=== PATIENT | male | born 1985 | race American Indian/Alaskan Native ===

== ENCOUNTER 2017-09-26 09:51 | Emergency (ER) | payer OTHER ==
[2017-09-26 10:28] VITALS: BP 133/74
[2017-09-26] MEDS ORDERED: BSS 1 DROPS, TETRACAINE 0.5% 1 DROPS, FUL-GLO 0.6 MG OU ONE (12:08)
[2017-09-26] MEDS ORDERED: BSS ONE (12:13)
[2017-09-26] MEDS ORDERED: FUL-GLO OP ONE (12:13)
[2017-09-26] MEDS ORDERED: TETRACAINE 0.5% ONE (12:14)
--- NOTE | 2017-09-26 12:14 | Emergency Department Report ---
[facility] Chief Complaint: Eye Problems Stated Complaint: LEFT EYE PAIN Time Seen by Provider: 09/26/17 11:40 Duration: 2 Days Side: Left Severity: moderate Symptoms: Yes Eye Redness, Yes Eye Pain, Yes Blurred Vision, No Eye Itching, No Mucous Drainage, No Purulent Drainage, No Preceding URI, No H/O Allergic Rhinitis, No Contact Lens Use, No Trauma, No Fever, No Headache Other History: Patient is a 32-year-old male with no prior medical history who presents to ED complaining of left eye redness and irritation for the past 2 days. Patient states he worse with tests and may have had some good and is about 2 days ago. Patient states that he tried some allergy eye drops that that was allergies but had no relief. He denies fever/ chills/annular problems patient states his vaccinations are all up to date. Patient does not use glasses or use contact ED Review of Systems ROS: Stated complaint: LEFT EYE PAIN Other details as noted in HPI Constitutional: denies: chills, fever Eyes: eye pain, vision change (blurry vison), other (redness). denies: eye discharge ENT: denies: ear pain, throat pain, dental pain, congestion Respiratory: denies: cough, shortness of breath, wheezing Cardiovascular: denies: chest pain, palpitations Endocrine: no symptoms reported Gastrointestinal: denies: abdominal pain, nausea, diarrhea Genitourinary: denies: urgency, dysuria Musculoskeletal: denies: back pain, joint swelling, arthralgia Skin: denies: rash, lesions Neurological: denies: headache, weakness, paresthesias Psychiatric: denies: anxiety, depression Hematological/Lymphatic: denies: easy bleeding, easy bruising ED Past Medical Hx - Past Medical History Previous Medical History?: No - Surgical History Past Surgical History?: No - Social History Smoking Status: Never Smoker Substance Use Type: Alcohol - Medications Home Medications: Home Medications Medication Instructions Recorded Confirmed Last Taken Type Ibuprofen [Motrin] 600 mg PO Q8H PRN #30 tablet 09/26/17 Unknown Rx Ofloxacin [Ocuflox 0.3%] 1 - 2 drop OP QID #5 ml 09/26/17 Unknown Rx [facility] Exam - Exam General: Vital signs noted. No distress. Alert and acting appropriately. Eye Exam: Left Injection, Neither Chemosis, Neither Abnormal Pupil, Neither EOMI , Neither Eye Foreign Body, Neither Lid Foreign Body, Neither Mucous Discharge, Neither Purulent Discharge, Neither Fluorescein Uptake, Neither Corneal Edema, Neither Photophobia HEENT: No Nasal Congestion, No Pharyngeal Erythema Remainder of HEENT: Normal Lungs: Yes Clear Lung Sounds, Yes Good Air Exchange, No Wheezes, No Stridor, No Cough, No Nasal Flaring, No Retractions, No Use of Accessory Muscles ED Course Vital Signs 09/26/17 10:24 Temperature 98.2 F Pulse Rate 84 Respiratory 18 Rate Blood Pressure 133/74 O2 Sat by Pulse 98 Oximetry ED Medical Decision Making - Medical Decision Making 32-year-old male presents with left eye conjunctivitis ED course: flores lamp test shows no corneal abrasion. discussed this with the patient. Discussed the patient will be going home on antibiotic eyedrops to apply 4-5 times a day I discussed the patient we'll give her switchboard operator receptionist referral if needed he'll follow-up if symptoms persist. I discussed the patient is new or worsening symptoms to return to ED immediately Patient's vital signs are stable he's in no distress. Patient is vision is intact, visual acuity test performed, within normal limits. Discussed the patient to follow up with her primary care physician in 3-5 days. Critical care attestation.: If time is entered above; I have spent that time in minutes in the direct care of this critically ill patient, excluding procedure time. ED Disposition Clinical Impression: Conjunctivitis Qualifiers: Conjunctivitis type: acute Acute conjunctivitis type: unspecified Laterality: left Qualified Code(s): H10.32 - Unspecified acute conjunctivitis, left eye Disposition: - TO HOME OR SELFCARE Is pt being admited?: No Does the pt Need Aspirin: No Condition: Stable Instructions: Conjunctivitis (ED) Additional Instructions: Make sure to follow up with the primary care physician as discussed. Take all your medications as you've been prescribed. If you have any worsening symptoms or develop new symptoms please return to ED immediately. Prescriptions: Ibuprofen [Motrin] 600 mg PO Q8H PRN #30 tablet PRN Reason: Pain Ofloxacin [Ocuflox 0.3%] 1 - 2 drop OP QID #5 ml Referrals: PRIMARY MD OSWADL [Primary Care Provider] - 3-5 Days MONICA CARDENAS MD [Staff Physician] - 3-5 Days [facility] [Outside] - 3-5 Days Forms: Work/School Release Form(ED) Time of Disposition: 12:12
== END 2017-09-26 12:36 | disposition home or self-care (01) ==
LOC: ED 09:51
DX: H10.32 Unspecified acute conjunctivitis, left eye (principal)
CPT/HCPCS: 99283